=== PATIENT | female | born 1945 | race Caucasian/White ===

== ENCOUNTER → 2018-06-16 | Outpatient (REF) | LOC: ZLAB.WCH 14:19 | DX: Z01.89 Encounter for other specified special examinations (principal) ==

== ENCOUNTER → 2019-06-30 | Outpatient (CLI) | payer MEDICARE, OTHER | LOC: MC.RAD 14:04 | DX: N64.89 Other specified disorders of breast (principal) | CPT/HCPCS: G0279 ==